=== PATIENT | male | born 1990 | race Caucasian/White ===

== ENCOUNTER 2018-02-15 02:03 | Emergency (ER) | payer OTHER ==
[~2018-02-15] VITALS: Ht 185.4 cm; Wt 152.3 kg
[2018-02-15 02:43] LABS: BASOPHILS # (AUTO) 0.1 X10'3 (0-0.2); BASOPHILS % (AUTO) 0.7 % (0-1); EOSINOPHILS # (AUTO) 0.2 X10'3 (0-0.9); EOSINOPHILS % (AUTO) 2.6 % (0-6); HEMATOCRIT 42.6 % (42.0-52.0); HEMOGLOBIN 14.5 g/dl (14.0-17.9); LYMPHOCYTES # (AUTO) 1.8 X10'3 (1.1-4.8); LYMPHOCYTES % (AUTO) 21.7 % (21-51); MEAN CORPUSCULAR HEMOGLOBIN 29.5 PG (27.0-31.0); MEAN CORPUSCULAR HGB CONC 34.1 % (33.0-36.5); MEAN CORPUSCULAR VOLUME 86.3 FL (78-98); MEAN PLATELET VOLUME 10.8 FL (7.4-10.4); MONOCYTES # (AUTO) 0.5 X10'3 (0-0.9); MONOCYTES % (AUTO) 6.4 % (2-12); NEUTROPHILS # (AUTO) 5.5 X10'3 (1.8-7.7); NEUTROPHILS % (AUTO) 68.6 % (42-75); PLATELET COUNT 214 X10'3 (140-440); RED BLOOD COUNT 4.93 X10'6 (4.70-6.10); RED CELL DISTRIBUTION WIDTH 12.7 % (11.5-14.5); WHITE BLOOD COUNT 8.1 X10'3 (4.5-11.0)
[2018-02-15] MEDS ORDERED: famotidine/PF 10 mg/ml inj IV ONE (02:50)
[2018-02-15] MEDS ORDERED: mag hydrox/Alum hydrox/simeth 30ml oral suspension PO ONE (02:50)
[2018-02-15] MEDS ORDERED: ondansetron/PF 4mg/2ml inj IV ONE (02:50)
[2018-02-15 02:52] LABS: PROTHROMBIN TIME 10.4 SECONDS (9.0-12.0)
[2018-02-15 02:55] LABS: ANION GAP 6 (8-16); BLOOD UREA NITROGEN 15 MG/DL (7-18); BUN/CREATININE RATIO 14.4 (5.4-32.0); CHLORIDE 103 MMOL/L (99-107); CREATININE 1.04 MG/DL (0.60-1.10); GLUCOSE 115 MG/DL (70-104); POTASSIUM 3.7 MMOL/L (3.5-5.1); SODIUM 140 MMOL/L (135-145); TOTAL CARBON DIOXIDE 30.7 MMOL/L (24-32); eGFR 86 ML/MIN
[2018-02-15 02:56] LABS: ALANINE AMINOTRANSFERASE 51 U/L (12-78); ALBUMIN 3.9 G/DL (3.4-5.0); ALBUMIN/GLOBULIN RATIO 1.1 (1.1-1.5); ALKALINE PHOSPHATASE 72 IU/L (46-116); ASPARTATE AMINO TRANSFERASE 27 U/L (10-37); BILIRUBIN,TOTAL 0.4 MG/DL (0.1-1.0); CALCIUM 8.6 MG/DL (8.5-10.1); LIPASE 258 U/L (73-393); TOTAL PROTEIN 7.5 G/DL (6.4-8.2)
[2018-02-15] MEDS ORDERED: LIDOcaine Viscous 15ml cup MM PRN (04:15)
[2018-02-15] MEDS ORDERED: HYDROcodone/acetaminophen 5mg/325mg tablet PO ONE (04:15)
[2018-02-15 04:44] VITALS: BP 121/95
== END 2018-02-15 04:45 | disposition home or self-care (01) ==
LOC: ER 02:04
DX: K52.9 Noninfective gastroenteritis and colitis, unspecified (principal)
CPT/HCPCS: 36415; 80053; 83690; 85025; 85610; 96374; 96375; 99285; J2405; J3490

== ENCOUNTER 2018-02-20 00:56 | Inpatient (IN) | payer OTHER ==
[2018-02-20] VITALS (14 sets, daily range): BP systolic 122–180; BP diastolic 69–98
[~2018-02-20] VITALS: Ht 185.4 cm; Wt 147.7 kg
[2018-02-20 01:27] LABS: BASOPHILS # (AUTO) 0.2 X10'3 (0-0.2); BASOPHILS % (AUTO) 1.2 % (0-1); EOSINOPHILS # (AUTO) 0.1 X10'3 (0-0.9); EOSINOPHILS % (AUTO) 0.5 % (0-6); HEMATOCRIT 45.2 % (42.0-52.0); HEMOGLOBIN 15.7 g/dl (14.0-17.9); LYMPHOCYTES # (AUTO) 1.5 X10'3 (1.1-4.8); LYMPHOCYTES % (AUTO) 9.2 % (21-51); MEAN CORPUSCULAR HEMOGLOBIN 29.9 PG (27.0-31.0); MEAN CORPUSCULAR HGB CONC 34.7 % (33.0-36.5); MEAN CORPUSCULAR VOLUME 86.1 FL (78-98); MEAN PLATELET VOLUME 10.4 FL (7.4-10.4); MONOCYTES # (AUTO) 0.8 X10'3 (0-0.9); MONOCYTES % (AUTO) 4.9 % (2-12); NEUTROPHILS # (AUTO) 13.4 X10'3 (1.8-7.7); NEUTROPHILS % (AUTO) 84.2 % (42-75); PLATELET COUNT 254 X10'3 (140-440); RED BLOOD COUNT 5.25 X10'6 (4.70-6.10); RED CELL DISTRIBUTION WIDTH 11.9 % (11.5-14.5)
[2018-02-20 01:40] LABS: ALANINE AMINOTRANSFERASE 37 U/L (12-78); ALBUMIN 4.1 G/DL (3.4-5.0); ALKALINE PHOSPHATASE 82 IU/L (46-116); ANION GAP 9 (8-16); ASPARTATE AMINO TRANSFERASE 21 U/L (10-37); BLOOD UREA NITROGEN 13 MG/DL (7-18); CALCIUM 9.1 MG/DL (8.5-10.1); CHLORIDE 97 MMOL/L (99-107); CREATININE 0.93 MG/DL (0.60-1.10); GLUCOSE 131 MG/DL (70-104); LIPASE 160 U/L (73-393); POTASSIUM 4.2 MMOL/L (3.5-5.1); SODIUM 135 MMOL/L (135-145); TOTAL PROTEIN 8.4 G/DL (6.4-8.2); eGFR > 90 ML/MIN
[2018-02-20 01:41] LABS: INR 1.1 INR; PROTHROMBIN TIME 10.7 SECONDS (9.0-12.0)
[2018-02-20] MEDS ORDERED: normal saline 1000ML IV soln IVB ONE (01:55)
[2018-02-20] MEDS ORDERED: ondansetron/PF 4mg/2ml inj IV STA (01:55)
[2018-02-20] MEDS: morphine 4 MG/ML inj SYRINge IV PRN ×4 (02:00→07:48)
[2018-02-20] MEDS ORDERED: mag hydrox/Alum hydrox/simeth 30ml oral suspension PO ONE (03:20)
[2018-02-20] MEDS ORDERED: LIDOcaine Viscous 15ml cup MM PRN (03:20)
[2018-02-20] MEDS ORDERED: famotidine/PF 10 mg/ml inj IV ONE (03:20)
[2018-02-20 03:51] LABS: H PYLORI ANTIBODY NEGATIVE (Neg)
[2018-02-20] MEDS ORDERED: FAMO-128 PO (05:21)
[2018-02-20] MEDS ORDERED: SUCR1TAB34 PO (05:21)
[2018-02-20] MEDS ORDERED: fentaNYL/PF 50MCG/1 ML 2ML syringe IV ONE (05:25)
[2018-02-20] MEDS ORDERED: ALBU8HFA PO (07:42)
[2018-02-20] MEDS ORDERED: DULO20CA50 PO (07:42)
[2018-02-20] MEDS ORDERED: CYCL-1 PO (07:43)
[2018-02-20] MEDS ORDERED: potassium Cl 40MEQ/NS 500ml 500 ML IV PRN ×2 (08:20)
[2018-02-20] MEDS ORDERED: magnesium 4gm in 100ml NS 100 ML IV PRN (08:20)
[2018-02-20] MEDS ORDERED: magnesium hydroxide 30ml (MOM) UD suspension PO PRN (08:20)
[2018-02-20] MEDS ORDERED: magnesium 1gm/100ml D5W IVPB 100 ML IV PRN (08:20)
[2018-02-20] MEDS ORDERED: potassium Cl 20 mEq SR tablet PO PRN ×2 (08:20)
[2018-02-20] MEDS ORDERED: ondansetron/PF 4mg/2ml inj IV PRN ×2 (08:20→18:15)
[2018-02-20] MEDS ORDERED: acetaminophen 325mg tablet PO PRN ×2 (08:20)
[2018-02-20] MEDS ORDERED: mag hydrox/Alum hydrox/simeth 30ml oral suspension PO PRN (08:20)
[2018-02-20] MEDS ORDERED: HYDROcodone/acetaminophen 5mg/325mg tablet PO PRN (08:20)
[2018-02-20] MEDS ORDERED: magnesium Cl slow-release 64mg tablet PO PRN (08:20)
[2018-02-20] MEDS ORDERED: morphine 2 MG/ML inj. syringe IV PRN ×2 (08:20)
[2018-02-20] MEDS ORDERED: HYDROcodone/acetaminophen 10/325mg tab PO PRN (08:20)
[2018-02-20] MEDS: normal saline 1000ml 1,000 ML IV SCH ×3 (08:58→23:46)
[2018-02-20] MEDS ORDERED: cyclobenzaprine 10mg tablet PO PRN (09:35)
[2018-02-20] MEDS: albuterol 2.5 MG/3 ML nebule NEB PRN (13:45)
[2018-02-20] MEDS ORDERED: HYDROmorphone inj. 0.5 MG/0.5 ML DISP.SYRIN IV PRN (16:40)
[2018-02-20] MEDS: HYDROmorphone 1 mg/ml syringe IV PRN (17:04)
[2018-02-20] MEDS: CefTRIAXone 2gm/D5W 50ml 50 ML IV SCH (17:04)
[2018-02-20] MEDS ORDERED: LIDOcaine 1% 30ml preserv. free vial ONE (17:45)
[2018-02-20] MEDS ORDERED: BUPIVAcaine/PF 2.5mg/ml (0.25%) 10ml vial ONE (17:45)
[2018-02-20] MEDS: metroNIDAZOLE-Flagyl 750mg/NS 150 ML IV SCH ×2 (18:07→23:42)
[2018-02-20] MEDS ORDERED: proCHLORperazine 10 MG/2 ml inj IV PRN (18:15)
[2018-02-20] MEDS ORDERED: ringers solution, lacted 1,000 ML IV SCH (18:15)
[2018-02-20] MEDS ORDERED: morphine 4 MG/ML inj SYRINge IV PRN ×2 (18:15)
[2018-02-20] MEDS ORDERED: meperidine/PF 25mg/ml syringe IV PRN ×2 (18:15)
[2018-02-20] MEDS ORDERED: midazolam 2 mg/2 ml injection ONE (18:49)
[2018-02-20] MEDS ORDERED: fentaNYL /PF 50mcg/ml 5ml ampule ONE (18:50)
[2018-02-20] MEDS ORDERED: LIDOcaine 2% (20mg/ml) 5ml vial ONE (18:50)
[2018-02-20] MEDS ORDERED: propofol inj 20 ML IV ONE (18:50)
[2018-02-20] MEDS ORDERED: glycopyrrolate 0.2mg/ml inj ONE (18:52)
[2018-02-20] MEDS ORDERED: neostigmine methylsulfate 1 MG/ML 10ml vial ONE (18:52)
[2018-02-20] MEDS ORDERED: metoprolol tartrate 1mg/ml inj IV ONE (18:52)
[2018-02-20] MEDS ORDERED: dexamethasone sod phosphate 10mg/ml inj ONE (18:52)
[2018-02-20] MEDS ORDERED: ondansetron/PF 4mg/2ml inj ONE (18:52)
[2018-02-20] MEDS ORDERED: ketorolac trometh. 30mg/ml inj. ONE ×2 (18:52→20:42)
[2018-02-20] MEDS ORDERED: sevoflurane 250ml liquid IH ONE (18:52)
[2018-02-20] MEDS ORDERED: rocuronium 10mg/ml inj IV ONE (19:00)
[2018-02-20 19:46] LABS: CLARITY,URINE CLEAR (Clear); COLOR,URINE YELLOW (Yellow); GLUCOSE, URINE NEGATIVE (Neg); KETONES,URINE NEGATIVE (Neg); LEUKOCYTE ESTERASE ,URINE TRACE (Neg); NITRITES, URINE NEGATIVE (Neg); OCCULT BLOOD,URINE LARGE (Neg); PH,URINE 5.5 (4.8-8.0); PROTEIN,URINE NEGATIVE (Neg); UROBILINOGEN,URINE 0.2 E.U/dL (0.2-1.0)
[2018-02-20 19:48] LABS: UA COLLECTION TYPE CLN CATCH MIDSTREAM
[2018-02-20 19:54] LABS: MUCUS STRANDS MODERATE /LPF (Neg)
[2018-02-20 19:55] LABS: SQUAMOUS EPITHELIAL CELL,UR MANY /LPF (FEW)
[2018-02-20 19:56] LABS: BACTERIA,URINE FEW /HPF (Neg); WBC,URINE 0-4 /HPF (0-4)
[2018-02-20] MEDS: ketorolac tromethamine 15mg/ml inj. IV SCH (20:40)
[2018-02-20] MEDS: meperidine/PF 25mg/ml syringe IV PRN ×2 (21:32→21:48)
[2018-02-21 00:45] VITALS: BP 118/71
[2018-02-21 01:45] VITALS: BP 121/75
[2018-02-21] MEDS: ketorolac tromethamine 15mg/ml inj. IV SCH ×4 (02:11→20:03)
[2018-02-21 04:00] VITALS: BP 132/80
[2018-02-21 05:09] LABS: BASOPHILS % (AUTO) 0.1 % (0-1); EOSINOPHILS # (AUTO) 0.2 X10'3 (0-0.9); EOSINOPHILS % (AUTO) 1.1 % (0-6); HEMATOCRIT 42.5 % (42.0-52.0); HEMOGLOBIN 14.3 g/dl (14.0-17.9); LYMPHOCYTES # (AUTO) 0.7 X10'3 (1.1-4.8); LYMPHOCYTES % (AUTO) 3.4 % (21-51); MEAN CORPUSCULAR HEMOGLOBIN 29.3 PG (27.0-31.0); MEAN CORPUSCULAR HGB CONC 33.8 % (33.0-36.5); MEAN CORPUSCULAR VOLUME 86.6 FL (78-98); MEAN PLATELET VOLUME 10.4 FL (7.4-10.4); MONOCYTES % (AUTO) 4.8 % (2-12); NEUTROPHILS % (AUTO) 90.6 % (42-75); PLATELET COUNT 233 X10'3 (140-440); RED CELL DISTRIBUTION WIDTH 12.6 % (11.5-14.5); WHITE BLOOD COUNT 19.9 X10'3 (4.5-11.0)
[2018-02-21 05:13] LABS: ANION GAP 9 (8-16); BLOOD UREA NITROGEN 16 MG/DL (7-18); BUN/CREATININE RATIO 15.7 (5.4-32.0); CALCIUM 8.5 MG/DL (8.5-10.1); CHLORIDE 100 MMOL/L (99-107); CREATININE 1.02 MG/DL (0.60-1.10); GLUCOSE 146 MG/DL (70-104); MAGNESIUM 1.9 MG/DL (1.5-2.4); POTASSIUM 4.2 MMOL/L (3.5-5.1); SODIUM 136 MMOL/L (135-145); TOTAL CARBON DIOXIDE 27.5 MMOL/L (24-32); eGFR 88 ML/MIN
[2018-02-21 07:00] VITALS: BP 114/64
[2018-02-21] MEDS: albuterol 2.5 MG/3 ML nebule NEB PRN ×2 (07:38→20:37)
[2018-02-21] MEDS: duloxetine 20mg capsule.DR PO SCH (07:57)
[2018-02-21] MEDS: CefTRIAXone 2gm/D5W 50ml 50 ML IV SCH (07:58)
[2018-02-21] MEDS: K and/or MAG REPLACEMENT MC SCH (08:00)
[2018-02-21 08:37] LABS: ALANINE AMINOTRANSFERASE 39 U/L (12-78); ALBUMIN/GLOBULIN RATIO 0.7 (1.1-1.5); ALKALINE PHOSPHATASE 50 IU/L (46-116); ASPARTATE AMINO TRANSFERASE 35 U/L (10-37); BILIRUBIN,DIRECT 0.2 MG/DL (0-0.3); BILIRUBIN,TOTAL 0.7 MG/DL (0.1-1.0); TOTAL PROTEIN 7.2 G/DL (6.4-8.2)
[2018-02-21] MEDS: metroNIDAZOLE-Flagyl 750mg/NS 150 ML IV SCH ×2 (09:20→18:11)
[2018-02-21 11:00] VITALS: BP 121/74
[2018-02-21] MEDS: normal saline 1000ml 1,000 ML IV SCH (14:36)
[2018-02-21] MEDS: levoFLOXACIN-Levaquin 750MG/D5 150 ML IV SCH (16:30)
[2018-02-21] MEDS: HYDROmorphone 1 mg/ml syringe IV PRN ×2 (16:36→20:03)
[2018-02-21 20:00] VITALS: BP 140/72
[2018-02-22] VITALS: BP 116/65
[2018-02-22] MEDS: normal saline 1000ml 1,000 ML IV SCH ×2 (00:18→09:05)
[2018-02-22] MEDS: metroNIDAZOLE-Flagyl 750mg/NS 150 ML IV SCH ×3 (00:25→15:31)
[2018-02-22] MEDS: ketorolac tromethamine 15mg/ml inj. IV SCH ×3 (02:09→14:52)
[2018-02-22] MEDS ORDERED: HYDROmorphone 1 mg/ml syringe IV PRN (02:12)
[2018-02-22 05:01] LABS: BASOPHILS % (AUTO) 0.1 % (0-1); EOSINOPHILS % (AUTO) 0.1 % (0-6); HEMATOCRIT 35.4 % (42.0-52.0); HEMOGLOBIN 11.9 g/dl (14.0-17.9); LYMPHOCYTES # (AUTO) 1.7 X10'3 (1.1-4.8); MEAN CORPUSCULAR HEMOGLOBIN 29.2 PG (27.0-31.0); MEAN CORPUSCULAR HGB CONC 33.7 % (33.0-36.5); MEAN CORPUSCULAR VOLUME 86.6 FL (78-98); MEAN PLATELET VOLUME 10.4 FL (7.4-10.4); MONOCYTES # (AUTO) 1.2 X10'3 (0-0.9); MONOCYTES % (AUTO) 8.7 % (2-12); NEUTROPHILS # (AUTO) 10.3 X10'3 (1.8-7.7); NEUTROPHILS % (AUTO) 78.1 % (42-75); PLATELET COUNT 187 X10'3 (140-440); RED BLOOD COUNT 4.09 X10'6 (4.70-6.10); RED CELL DISTRIBUTION WIDTH 13.2 % (11.5-14.5); WHITE BLOOD COUNT 13.2 X10'3 (4.5-11.0)
[2018-02-22 05:19] LABS: ALBUMIN 2.4 G/DL (3.4-5.0); ANION GAP 8 (8-16); BLOOD UREA NITROGEN 16 MG/DL (7-18); BUN/CREATININE RATIO 19.8 (5.4-32.0); CALCIUM 7.9 MG/DL (8.5-10.1); CHLORIDE 103 MMOL/L (99-107); CREATININE 0.81 MG/DL (0.60-1.10); GLUCOSE 102 MG/DL (70-104); POTASSIUM 3.2 MMOL/L (3.5-5.1); SODIUM 139 MMOL/L (135-145); TOTAL CARBON DIOXIDE 28.3 MMOL/L (24-32); eGFR > 90 ML/MIN
[2018-02-22 07:00] VITALS: BP 131/85
[2018-02-22] MEDS: duloxetine 20mg capsule.DR PO SCH (07:26)
[2018-02-22] MEDS: levoFLOXACIN-Levaquin 750MG/D5 150 ML IV SCH (07:26)
[2018-02-22] MEDS: albuterol 2.5 MG/3 ML nebule NEB PRN (07:57)
[2018-02-22] MEDS: K and/or MAG REPLACEMENT MC SCH (08:00)
[2018-02-22 11:00] VITALS: BP 141/87
[2018-02-22] MEDS ORDERED: ALBU8.5H8 IH (14:20)
[2018-02-22] MEDS ORDERED: METR500T PO (14:20)
[2018-02-22] MEDS ORDERED: LACT1CAP26 PO (14:20)
[2018-02-22] MEDS ORDERED: LEVO750T46 PO (14:20)
[2018-02-22] MEDS ORDERED: metroNIDAZOLE 500mg tablet PO ONE (16:00)
[2018-02-22] MEDS ORDERED: lactobacillus rhamnosus 10,000 MMU CELLS/CAPSULE PO SCH (20:00)
== END 2018-02-22 16:04 | disposition home health service (06) | DRG 854 ==
LOC: ER 00:56 → ED HOLD 08:18 → SUR 3N 10:42 → PACU 18:22 → SUR 3N 22:00
PROVIDERS: ADMIT Hospitalist; ATTEND Family Medicine
PROC: 0FT44ZZ Resection of Gallbladder, Percutaneous Endoscopic Approach (ICD-10-PCS; principal; 2018-02-20 18:52)
DX: A41.9 Sepsis, unspecified organism (principal); K80.12 Calculus of gallbladder with acute and chronic cholecystitis without obstruction; Z68.41 Body mass index [BMI] 40.0-44.9, adult; E66.01 Morbid (severe) obesity due to excess calories; K82.A1 Gangrene of gallbladder in cholecystitis; J45.909 Unspecified asthma, uncomplicated; G89.29 Other chronic pain; M54.9 Dorsalgia, unspecified; Z79.899 Other long term (current) drug therapy
CPT/HCPCS: 96361; 96374; 96375; 99285; Z7506; 36415; 74176; 76700; 80048; 80053; 80076; 81001; 83690; 83735; 85025; 85610; 86677; 87070; 87088; 94640; 94760; A6251; A7000; G0378; J0696; J1100; J1170; J1885; J1956; J2001; J2175; J2250; J2270; J2405; J2704; J2710; J3010; J3490; J7030; J7120